=== PATIENT | male | born 1985 ===

== ENCOUNTER 2020-09-06 19:59 | Emergency (ER) | payer OTHER, SELFPAY ==
[2020-09-06 20:13] VITALS: BP 114/72; PULSE 70; RESP 14; TEMP 36.2; O2SAT 99
--- NOTE | 2020-09-06 20:33 | ED_ITS ---
HPI - Recheck/Abnormal Lab/Rx General Chief Complaint: Recheck/Abnormal Lab/Rx Stated Complaint: wants pcr test Time Seen by Provider: 09/06/20 20:13 Source: patient Mode of arrival: Ambulatory Limitations: no limitations History of Present Illness HPI narrative: 34-year-old male nonsmoker with noncontributory medical history presents with multiple family members and the request for a COVID test which would allow him to return home to [place]. He denies any exposure to persons with known or suspected COVID. He has no symptoms such as runny nose, sore throat or cough. He has no fever or chills. He denies any chest pain or shortness of breath. 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 Extraoccular muscles are intact bilaterally. There is no subconjunctival hemorrhage or exudate. CHEST: Lungs are clear to auscultation bilaterally and free of wheezes, rales, or rhonchi. Heart rate is regular rhythm, there are no murmurs, clicks, rubs, or gallops. There is no chest wall tenderness. ABD: Abdomen is soft and nontender. There is no guarding or rebound. Bowel sounds are normal in all 4 quadrants. There is no mass or organomegaly. EXT: Full painless ROM of all extremities with no loss of sensation or strength. SKIN: Warm, pink, and dry. No erythema or rash Initial Vital Signs Initial Vital Signs: Vital Signs Temperature 97.1 F L 09/06/20 20:13 Pulse Rate 70 09/06/20 20:13 Respiratory Rate 14 09/06/20 20:13 Blood Pressure 114/72 09/06/20 20:13 Pulse Oximetry 99 09/06/20 20:13 Course Orders Ordered: ED Orders 09/06/20 20:16 COVID19 -Nasal swab/Pre-Proc Stat Vital Signs Vital signs: Vital Signs - 8 hr 09/06/20 20:13 Temperature 97.1 F L Pulse Rate 70 Respiratory Rate 14 Blood Pressure 114/72 Pulse Oximetry 99 MDM - Recheck/Abnormal Lab/Rx Lab Data Labs: Lab Results 09/06/20 Range/Units 20:16 SARS-CoV-2 (PCR) Negative (Negative) Discharge Plan Departure Patient Disposition: Home Clinical Impression: Feared complaint without diagnosis Instructions: COVID-19 Viral Test Activity Restrictions/Additional Instructions: There is no evidence of an emergent or life threatening illness at this time, but follow up with your doctor in 1-2 days is recommended nonetheless to continue to rule out serious underlying causes of your symptoms. Please call the office for an appointment. Please return to the Emergency Department for any worsening or persistent symptoms. Please take medications as directed.
[2020-09-06 20:37] LABS: COVID19 -Nasal RAPID Negative (Negative)
== END 2020-09-06 20:46 | disposition home or self-care (01) ==
PROVIDERS: Emergency Provider Emergency Medicine
DX: Z20.822 Contact with and (suspected) exposure to COVID-19 (principal)
CPT/HCPCS: 87635; 99281; C9803